=== PATIENT | male | born 1975 | race Two or more races ===

== ENCOUNTER 2019-02-14 04:51 | Emergency (ER) | payer OTHER ==
[~2019-02-14] VITALS: Ht 167.6 cm; Wt 74.8 kg
[2019-02-14 05:03] VITALS: BP 126/88
[2019-02-14] MEDS ORDERED: ACETAMINOPHEN 325 MG TAB PO ONE (06:45)
== END 2019-02-14 06:49 | disposition home or self-care (01) ==
LOC: ER 04:51
DX: H10.33 Unspecified acute conjunctivitis, bilateral (principal)

== ENCOUNTER 2021-10-27 22:16 | Emergency (ER) | payer SELFPAY ==
[~2021-10-27] VITALS: Ht 162.6 cm; Wt 72.6 kg
[2021-10-27 22:50] VITALS: BP 131/96
[2021-10-27 23:35] LABS: Basophils # (auto) 0 10 ^3/uL (0-0.2); Basophils % (auto) 0.2 % (0.0-2.0); Eosinophils # (auto) 0 10 ^3/uL (0-0.8); Eosinophils % (auto) 0.3 % (0.0-7.0); Hematocrit 41.8 % (41.0-53.0); Lymphocytes # (auto) 1.7 10 ^3/uL (0.4-5.4); Lymphocytes % (auto) 10.7 % (10.0-50.0); Mean Corpuscular Hemoglobin 31.6 pg (28.0-32.0); Mean Corpuscular Hgb Conc. 33.5 g/dL (32.0-36.0); Mean Corpuscular Volume 94.3 fL (80.0-100.0); Monocytes % (auto) 6.2 % (0.0-12.0); Neutrophils # (auto) 13.1 10 ^3/uL (1.6-8.6); Neutrophils % (auto) 82.6 % (37.0-80.0); Red Blood Cells 4.43 10^6/uL (4.5-5.90); Red Cell Distribution Width 13.4 % (11.8-14.3); White Blood Cell 15.9 10^3/uL (4.4-10.8)
[2021-10-27 23:55] LABS: Albumin 3.7 g/dL (3.4-5.0); Calcium 9.7 mg/dL (8.5-10.1); Potassium 4.4 mmol/L (3.5-5.1)
[2021-10-28 00:01] LABS: Bilirubin, Total 0.2 mg/dL (0.2-1.0); Total Protein 7.6 g/dL (6.4-8.2)
== END 2021-10-28 04:21 | disposition left against medical advice (07) ==
LOC: ER 22:16 → EDBD 22:16 → ER 10-28 04:21
DX: R07.89 Other chest pain (principal); R10.13 Epigastric pain; Z53.21 Procedure and treatment not carried out due to patient leaving prior to being seen by health care provider
CPT/HCPCS: 36415; 80053; 83690; 85025; 93005

== ENCOUNTER 2023-01-30 02:46 | Emergency (ER) | payer OTHER ==
[~2023-01-30] VITALS: Ht 162.6 cm; Wt 61.0 kg
[2023-01-30 03:34] LABS: Basophils # (auto) 0 10 ^3/uL (0-0.2); Basophils % (auto) 0.3 % (0.0-2.0); Eosinophils # (auto) 0.1 10 ^3/uL (0-0.8); Eosinophils % (auto) 0.9 % (0.0-7.0); Hematocrit 41.1 % (41.0-53.0); Lymphocytes # (auto) 3.2 10 ^3/uL (0.4-5.4); Lymphocytes % (auto) 24.1 % (10.0-50.0); Mean Corpuscular Hemoglobin 31.7 pg (28.0-32.0); Mean Corpuscular Hgb Conc. 34.1 g/dL (32.0-36.0); Monocytes # (auto) 1.2 10 ^3/uL (0-1.3); Monocytes % (auto) 9.1 % (0.0-12.0); Neutrophils # (auto) 8.7 10 ^3/uL (1.6-8.6); Neutrophils % (auto) 65.6 % (37.0-80.0); Red Blood Cells 4.42 10^6/uL (4.5-5.90); Red Cell Distribution Width 13.5 % (11.8-14.3); White Blood Cell 13.2 10^3/uL (4.4-10.8)
[2023-01-30 03:41] LABS: Urine Bacteria NONE SEEN /hpf (None Seen); Urine Blood Negative /uL (Negative); Urine Mucus FEW (None Seen); Urine WBC 1 /hpf (0 - 3)
[2023-01-30 03:52] LABS: Albumin 3.8 g/dL (3.4-5.0); Calcium 9.2 mg/dL (8.5-10.1); Potassium 3.7 mmol/L (3.5-5.1)
[2023-01-30 03:55] LABS: BUN/Creatinine Ratio 17.5 (10.0-20.0); Bilirubin, Total 0.4 mg/dL (0.2-1.0); Total Protein 8.5 g/dL (6.4-8.2)
[2023-01-30] MEDS ORDERED: ONDA-144 PO (05:19)
[2023-01-30] MEDS ORDERED: PANT40TA2 PO (05:19)
[2023-01-30] MEDS ORDERED: PERCOT PO (05:19)
[2023-01-30] MEDS ORDERED: CIPR-173 PO (06:29)
[2023-01-30 06:33] VITALS: BP 129/64
[2023-01-31] MEDS ORDERED: MAGNSOL17 OR (02:21)
== END 2023-01-30 06:54 | disposition home or self-care (01) ==
LOC: ER 02:46
DX: K29.70 Gastritis, unspecified, without bleeding (principal); N39.0 Urinary tract infection, site not specified
CPT/HCPCS: 36415; 71045; 74176; 80053; 81001; 83690; 85025

== ENCOUNTER 2023-01-31 00:39 | Emergency (ER) | payer OTHER ==
[~2023-01-31] VITALS: Ht 162.6 cm; Wt 63.0 kg
[~2023-01-31 00:39] MED LIST: CIPR-173 PO; ONDA-144 PO; PANT40TA2 PO; PERCOT PO
[2023-01-31] MEDS ORDERED: MAGNESIUM CITRATE SOLUTION 300 ML BTL PO ONE (01:45)
[2023-01-31 02:09] VITALS: BP 138/78
[2023-01-31] MEDS ORDERED: MAGNSOL17 OR (02:21)
== END 2023-01-31 02:37 | disposition home or self-care (01) ==
LOC: ER 00:39
DX: K59.00 Constipation, unspecified (principal); Z79.899 Other long term (current) drug therapy